=== PATIENT | female | born 1980 | race Caucasian/White ===

== ENCOUNTER 2018-09-30 19:40 | Emergency (ER) | payer BC ==
[2018-09-30] MEDS ORDERED: Ondansetron 4 MG/2 ML SDV IVPUSH ONE (20:03)
[2018-09-30] MEDS ORDERED: Sodium Chloride 0.9% 10 ML Syringe FLUSH PRN (20:03)
[2018-09-30] MEDS ORDERED: HYDROmorphone 1 MG/ML Syringe IVPUSH ONE ×2 (20:05→21:24)
[2018-09-30] MEDS ORDERED: Sodium Chloride 0.9% 1,000 ML IV SCH (20:15)
--- NOTE | 2018-09-30 20:29 | EDM.PDOC ---
ED HPI GENERAL MEDICAL PROBLEM - General Chief Complaint: Abdominal Pain Stated Complaint: RIGHT SIDE LOWER STOMACH AND BACK PAIN Time Seen by Provider: 09/30/18 19:57 Source of Information: Reports: Patient History Limitations: Reports: No Limitations - History of Present Illness INITIAL COMMENTS - FREE TEXT/NARRATIVE: The patient presents with RLQ abdominal pain and right flank pain. She says the pain just started. She just got home and she was bringing groceries into her house. She says the pain is severe and it come and goes. She has no fever , chills, cough, congestion, runny nose, chest pain or shortness of breath. She denies dysuria or hematuria. She has no history of kidney stones. She still has her gallbladder and appendix. She does not think she is . Onset: Sudden Duration: Minutes: Location: Reports: Abdomen, Back Quality: Reports: Sharp Severity: Severe Improves with: Reports: None Worsens with: Reports: None Associated Symptoms: Reports: No Other Symptoms Treatments ION EXCHANGE OPERATOR: Reports: Other (see below) Other Treatments ION EXCHANGE OPERATOR: none Right Abdomen Pain Score (Numeric/FACES): 10 - Related Data Allergies Allergy/AdvReac Type Severity Reaction Status Date / Time No Known Allergies Allergy Verified 09/30/18 19:49 Home Meds: Home Meds ALPRAZolam [Xanax] 0.5 mg PO TID PRN 09/30/18 [History] [place] Citrate [[place]] 150 mg PO DAILY 09/30/18 [History] Lurasidone HCl [Latuda] 120 mg PO BEDTIME 09/30/18 [History] Mirabegron [Myrbetriq] 25 mg PO DAILY 09/30/18 [History] Nitrofurantoin Monohyd/M-Cryst [Macrobid 100 mg Capsule] 100 mg PO BID #10 capsule 09/30/18 [Rx] traMADol [Ultram] 50 - 100 mg PO Q6H PRN #10 tab 09/30/18 [Rx] Past Medical History Neurological History: Reports: Other (See Below) Other Neuro History: micro vascular decompression surgery Psychiatric History: Reports: Anxiety, Depression Social & Family History - Tobacco Use Smoking Status *Q: Never Smoker - Caffeine Use Caffeine Use: Reports: Soda - Recreational Drug Use Recreational Drug Use: No ED ROS GENERAL - Review of Systems Review Of Systems: See Below Constitutional: Reports: No Symptoms HEENT: Reports: No Symptoms Respiratory: Reports: No Symptoms Cardiovascular: Reports: No Symptoms Endocrine: Reports: No Symptoms GI/Abdominal: Reports: Abdominal Pain. Denies: Diarrhea, Nausea, Vomiting : Reports: Flank Pain. Denies: Dysuria, Frequency, Hematuria Musculoskeletal: Reports: Back Pain (right flank) Skin: Reports: No Symptoms ED EXAM, GI/ABD - Physical Exam Exam: See Below Exam Limited By: No Limitations General Appearance: Alert, No Apparent Distress Ears: Normal External Exam Nose: Normal Inspection Head: Atraumatic, Normocephalic Neck: Normal Inspection Respiratory/Chest: No Respiratory Distress, Lungs Clear, Normal Breath Sounds Cardiovascular: Regular Rate, Rhythm, No Edema, No Murmur GI/Abdominal Exam: Soft, No Organomegaly, No Mass, Tender (Mild tenderness to the right lower abdomen) Back Exam: CVA Tenderness (R) Extremities: Normal Inspection Course - Vital Signs Last Recorded V/S: Last Vital Signs Temp 97.9 F 09/30/18 19:56 Pulse 72 09/30/18 19:56 Resp 20 09/30/18 19:56 BP 128/82 09/30/18 19:56 Pulse Ox 100 09/30/18 19:56 - Orders/Labs/Meds Orders: Active Orders 24 hr Category Date Time Status Peripheral IV Care [RC] . DIRECTED Care 09/30/18 20:04 Active Abdomen Pelvis wo Cont [CT] Stat Exams 09/30/18 20:03 Taken Sodium Chloride 0.9% [Normal Saline] 1,000 ml Med 09/30/18 20:15 Active IV ASDIRECTED Sodium Chloride 0.9% [Saline Flush] Med 09/30/18 20:03 Active 10 ml FLUSH ASDIRECTED PRN ED Antiemetic Medication Reflex [OM.PC] Stat Oth 09/30/18 20:03 Ordered Peripheral IV Insertion Adult [OM.PC] Stat Oth 09/30/18 20:03 Ordered Medication Orders Sodium Chloride (Normal Saline) 1,000 mls @ 125 mls/hr IV ASDIRECTED ABDIRIZAK Last Admin: 09/30/18 20:15 Dose: 125 mls/hr Sodium Chloride (Saline Flush) 10 ml FLUSH ASDIRECTED PRN PRN Reason: Keep Vein Open Last Admin: 09/30/18 20:17 Dose: 10 ml Labs: Laboratory Tests 09/30/18 09/30/18 09/30/18 Range/Units 20:23 20:23 20:23 WBC 6.34 (3.98-10.04) K/mm3 RBC 4.16 (3.98-5.22) M/mm3 Hgb 14.0 (11.2-15.7) gm/L Hct 40.1 (34.1-44.9) % MCV 96.4 H (79.4-94.8) fl MCH 33.7 H (25.6-32.2) pg MCHC 34.9 (32.2-35.5) g/dl RDW Std Deviation 42.8 (36.4-46.3) fL Plt Count 238 (182-369) K/mm3 MPV 10.0 (9.4-12.3) fl Neut % (Auto) 57.2 (34.0-71.1) % Lymph % (Auto) 27.6 (19.3-51.7) % [place] % (Auto) 7.7 (4.7-12.5) % Eos % (Auto) 6.2 H (0.7-5.8) Baso % (Auto) 1.1 (0.1-1.2) % Neut # (Auto) 3.63 (1.56-6.13) K/mm3 Lymph # (Auto) 1.75 (1.18-3.74) K/mm3 [place] # (Auto) 0.49 H (0.24-0.36) K/mm3 Eos # (Auto) 0.39 H (0.04-0.36) K/mm3 Baso # (Auto) 0.07 (0.01-0.08) K/mm3 Sodium 142 (136-145) mEq/L Potassium 3.5 (3.5-5.1) mEq/L Chloride 103 (98-107) mEq/L Carbon Dioxide 29 (21-32) mEq/L Anion Gap 13.5 (5-15) BUN 4 L (7-18) mg/dL Creatinine 1.2 H (0.55-1.02) mg/dL Est Cr Clr Drug Dosing 52.58 mL/min Estimated GFR (MDRD) 50 (>60) mL/min BUN/Creatinine Ratio 3.3 L (14-18) Glucose 90 (74-106) mg/dL Calcium 9.2 (8.5-10.1) mg/dL Total Bilirubin 0.5 (0.2-1.0) mg/dL AST 34 (15-37) U/L ALT 72 H (14-59) U/L Alkaline Phosphatase 71 (46-116) U/L Total Protein 8.0 (6.4-8.2) g/dl Albumin 4.3 (3.4-5.0) g/dl Globulin 3.7 gm/dL Albumin/Globulin Ratio 1.2 (1-2) Lipase 215 (73-393) U/L HCG, Qual (NEGATIVE) Urine Color Light yellow (Yellow) Urine Appearance Clear (Clear) Urine pH 6.0 (5.0-8.0) Ur Specific [place] 1.010 (1.005-1.030) Urine Protein Negative (Negative) Urine Glucose (UA) Negative (Negative) Urine Ketones Negative (Negative) Urine Occult Blood Negative (Negative) Urine Nitrite Negative (Negative) Urine Bilirubin Negative (Negative) Urine Urobilinogen 0.2 (0.2-1.0) Ur Leukocyte Esterase 2+ H (Negative) Urine RBC 0-5 (0-5) /hpf Urine WBC 10-20 H (0-5) /hpf Ur Epithelial Cells 0-5 (0-5) /hpf Urine Bacteria Rare (FEW) /hpf Urine Mucus Not seen (FEW) /hpf 09/30/18 Range/Units 20:23 WBC (3.98-10.04) K/mm3 RBC (3.98-5.22) M/mm3 Hgb (11.2-15.7) gm/L Hct (34.1-44.9) % MCV (79.4-94.8) fl MCH (25.6-32.2) pg MCHC (32.2-35.5) g/dl RDW Std Deviation (36.4-46.3) fL Plt Count (182-369) K/mm3 MPV (9.4-12.3) fl Neut % (Auto) (34.0-71.1) % Lymph % (Auto) (19.3-51.7) % [place] % (Auto) (4.7-12.5) % Eos % (Auto) (0.7-5.8) Baso % (Auto) (0.1-1.2) % Neut # (Auto) (1.56-6.13) K/mm3 Lymph # (Auto) (1.18-3.74) K/mm3 [place] # (Auto) (0.24-0.36) K/mm3 Eos # (Auto) (0.04-0.36) K/mm3 Baso # (Auto) (0.01-0.08) K/mm3 Sodium (136-145) mEq/L Potassium (3.5-5.1) mEq/L Chloride (98-107) mEq/L Carbon Dioxide (21-32) mEq/L Anion Gap (5-15) BUN (7-18) mg/dL Creatinine (0.55-1.02) mg/dL Est Cr Clr Drug Dosing mL/min Estimated GFR (MDRD) (>60) mL/min BUN/Creatinine Ratio (14-18) Glucose (74-106) mg/dL Calcium (8.5-10.1) mg/dL Total Bilirubin (0.2-1.0) mg/dL AST (15-37) U/L ALT (14-59) U/L Alkaline Phosphatase (46-116) U/L Total Protein (6.4-8.2) g/dl Albumin (3.4-5.0) g/dl Globulin gm/dL Albumin/Globulin Ratio (1-2) Lipase (73-393) U/L HCG, Qual Negative (NEGATIVE) Urine Color (Yellow) Urine Appearance (Clear) Urine pH (5.0-8.0) Ur Specific [place] (1.005-1.030) Urine Protein (Negative) Urine Glucose (UA) (Negative) Urine Ketones (Negative) Urine Occult Blood (Negative) Urine Nitrite (Negative) Urine Bilirubin (Negative) Urine Urobilinogen (0.2-1.0) Ur Leukocyte Esterase (Negative) Urine RBC (0-5) /hpf Urine WBC (0-5) /hpf Ur Epithelial Cells (0-5) /hpf Urine Bacteria (FEW) /hpf Urine Mucus (FEW) /hpf Meds: Medications Generic Name Dose Route Start Last Admin Trade Name Freq PRN Reason Stop Dose Admin Sodium Chloride 1,000 mls @ 125 mls/hr 09/30/18 20:15 09/30/18 20:15 Normal Saline IV 125 mls/hr ASDIRECTED ABDIRIZAK Administration Sodium Chloride 10 ml 09/30/18 20:03 09/30/18 20:17 Saline Flush FLUSH 10 ml ASDIRECTED PRN Administration Keep Vein Open Discontinued Medications Generic Name Dose Route Start Last Admin Trade Name Cipriano PRN Reason Stop Dose Admin Hydromorphone HCl 0.5 mg 09/30/18 20:05 09/30/18 20:18 Dilaudid IVPUSH 09/30/18 20:06 0.5 mg ONETIME ONE Administration Hydromorphone HCl 0.5 mg 09/30/18 21:24 Dilaudid IVPUSH 09/30/18 21:25 ONETIME ONE Ondansetron HCl 4 mg 09/30/18 20:03 09/30/18 20:16 Zofran IVPUSH 09/30/18 20:04 4 mg ONETIME ONE Administration - Re-Assessments/Exams Free Text/Narrative Re-Assessment/Exam: 09/30/18 20:28 I ordered an IV NS at 125ml/hr, zofran 4mg IV, dilaudid 0.5mg IV, labs, UA and a CT of her abdomen and pelvis without contrast to look for a kidney stone. 09/30/18 21:18 Her CBC looks good. Her creatinine is slightly elevated at 1.2. Her ALT is elevated at 72. Her lipase is negative. Her HCG is negative. He US shows a UTI. I am waiting for the CT. 09/30/18 21:[address] shows nothing acute. She has more pain so I ordered some dilaudid. I will get her on some macrobid for the UTI. Departure - Departure Time of Disposition: 21:30 Disposition: Home, Self-Care 01 Condition: Good Clinical Impression: Abdominal pain Qualifiers: Abdominal location: right lower quadrant Qualified Code(s): R10.31 - Right lower quadrant pain UTI (urinary tract infection) Qualifiers: Urinary tract infection type: site unspecified Hematuria presence: without hematuria Qualified Code(s): N39.0 - Urinary tract infection, site not specified - Discharge Information *PRESCRIPTION DRUG MONITORING PROGRAM REVIEWED*: No *COPY OF PRESCRIPTION DRUG MONITORING REPORT IN PATIENT CHUCK: No Prescriptions: Nitrofurantoin Monohyd/M-Cryst [Macrobid 100 mg Capsule] 100 mg PO BID #10 capsule traMADol [Ultram] 50 - 100 mg PO Q6H PRN #10 tab PRN Reason: Pain Referrals: PCP,None [Primary Care Provider] - Jorge Burns, JONELLE [Physician Mold Maintenance Technician] - 1 Week Forms: ED Department Discharge Additional Instructions: Take the macrobid 2 times per day for 5 days. Drink plenty of fluids. Take tylenol or motrin for pain. If that does not help, you can try some ultram. Please return if you are worse. - My Orders Last 24 Hours: My Active Orders 09/30/18 20:03 Abdomen Pelvis wo Cont [CT] Stat Sodium Chloride 0.9% [Saline Flush] 10 ml FLUSH ASDIRECTED PRN ED Antiemetic Medication Reflex [OM.PC] Stat Peripheral IV Insertion Adult [OM.PC] Stat 09/30/18 20:04 Peripheral IV Care [RC] . DIRECTED 09/30/18 20:15 Sodium Chloride 0.9% [Normal Saline] 1,000 ml IV ASDIRECTED - Assessment/Plan Last 24 Hours: My Active Orders 09/30/18 20:03 Abdomen Pelvis wo Cont [CT] Stat Sodium Chloride 0.9% [Saline Flush] 10 ml FLUSH ASDIRECTED PRN ED Antiemetic Medication Reflex [OM.PC] Stat Peripheral IV Insertion Adult [OM.PC] Stat 09/30/18 20:04 Peripheral IV Care [RC] . DIRECTED 09/30/18 20:15 Sodium Chloride 0.9% [Normal Saline] 1,000 ml IV ASDIRECTED
--- NOTE | 2018-10-01 07:19 | CT ---
CT abdomen and pelvis Technique: Multiple axial sections were obtained from above the dome of the diaphragm inferiorly through the pubic symphysis. Intravenous contrast and oral contrast not given. Study has been performed as a ureteral stone protocol. Findings: Kidneys show no abnormal calcifications. No ureteral dilatation is seen. No ureteral calculi are seen. Small portion of the visualized lung bases are clear. Liver shows no focal parenchymal abnormality. Spleen appears within normal limits. Adrenal glands show no nodule. Pancreas is within normal limits. Gallbladder contains no calcified gallstones. Aorta shows no aneurysm. No retroperitoneal adenopathy or mesenteric abnormalities are seen. No pelvic mass or adenopathy is seen. No free fluid or inflammatory change is seen. No bowel dilatation is seen. Appendix is seen which is normal in size. Bone window settings were reviewed which appear within normal limits for the patient's age. Impression: 1. No renal calculi, ureteral dilatation or ureteral stone is seen. 2. Nothing acute is seen on noncontrast CT study of the abdomen and pelvis performed as a ureteral stone protocol. Diagnostic code #1 I agree with preliminary report from [facility], finalized on 09/30/18, 10:19 PM Central Time
== END 2018-09-30 21:38 | disposition home or self-care (01) ==
LOC: JD.ED 19:40
DX: N39.0 Urinary tract infection, site not specified (principal); F41.9 Anxiety disorder, unspecified; F32.9 Major depressive disorder, single episode, unspecified; Z79.899 Other long term (current) drug therapy
CPT/HCPCS: 36415; 74176; 80053; 81001; 83690; 84703; 85025; 96361; 96374; 96375; 96376; 99284; J1170; J2405; J7040

== ENCOUNTER 2018-11-15 18:50 | Emergency (ER) | payer BC ==
[2018-11-15] MEDS ORDERED: Sulfamethoxazole/Trimethoprim 800-160 MG Tab PO ONE (22:45)
[2018-11-15] MEDS ORDERED: traMADol 50 MG Tab PO ONE (22:55)
--- NOTE | 2018-11-15 22:58 | EDM.PDOC ---
ED HPI GENERAL MEDICAL PROBLEM - General Chief Complaint: General Stated Complaint: RIGHT SIDE PAIN WHEN WALKING HURTS TO BREATHE Time Seen by Provider: 11/15/18 19:11 - History of Present Illness Treatments PRODUCER DIRECTOR: Reports: Other (see below) Other Treatments PRODUCER DIRECTOR: motrin - Related Data Allergies Allergy/AdvReac Type Severity Reaction Status Date / Time No Known Allergies Allergy Verified 09/30/18 19:49 Home Meds: Home Meds ALPRAZolam [Xanax] 0.5 mg PO TID PRN 09/30/18 [History] [place] Citrate [[place]] 450 mg PO DAILY 09/30/18 [History] Lurasidone HCl [Latuda] 120 mg PO BEDTIME 09/30/18 [History] Mirabegron [Myrbetriq] 25 mg PO DAILY 09/30/18 [History] traMADol [Ultram] 50 - 100 mg PO Q6H PRN #10 tab 09/30/18 [Rx] Past Medical History Neurological History: Reports: Other (See Below) Other Neuro History: micro vascular decompression surgery Psychiatric History: Reports: Anxiety, Depression, Psychosis Social & Family History - Tobacco Use Smoking Status *Q: Never Smoker - Caffeine Use Caffeine Use: Reports: Soda - Recreational Drug Use Recreational Drug Use: No ED ROS GENERAL - Review of Systems Review Of Systems: ROS reveals no pertinent complaints other than HPI. ED EXAM, GENERAL - Physical Exam Exam: See Below Free Text/Narrative:: dictated Course - Vital Signs Last Recorded V/S: Last Vital Signs Temp 37.2 C 11/15/18 19:08 Pulse 92 11/15/18 19:08 Resp 20 11/15/18 19:08 BP 130/87 11/15/18 19:08 Pulse Ox 98 11/15/18 19:08 - Orders/Labs/Meds Orders: Active Orders 24 hr Category Date Time Status CXR [Chest 2V] [CR] Stat Exams 11/15/18 19:22 Taken Labs: Laboratory Tests 11/15/18 11/15/18 11/15/18 Range/Units 19:30 19:30 19:30 WBC 7.16 (3.98-10.04) K/mm3 RBC 3.97 L (3.98-5.22) M/mm3 Hgb 13.5 (11.2-15.7) gm/L Hct 38.4 (34.1-44.9) % MCV 96.7 H (79.4-94.8) fl MCH 34.0 H (25.6-32.2) pg MCHC 35.2 (32.2-35.5) g/dl RDW Std Deviation 42.9 (36.4-46.3) fL Plt Count 253 (182-369) K/mm3 MPV 9.7 (9.4-12.3) fl Neut % (Auto) 67.1 (34.0-71.1) % Lymph % (Auto) 19.3 (19.3-51.7) % [place] % (Auto) 7.8 (4.7-12.5) % Eos % (Auto) 4.7 (0.7-5.8) Baso % (Auto) 1.1 (0.1-1.2) % Neut # (Auto) 4.80 (1.56-6.13) K/mm3 Lymph # (Auto) 1.38 (1.18-3.74) K/mm3 [place] # (Auto) 0.56 H (0.24-0.36) K/mm3 Eos # (Auto) 0.34 (0.04-0.36) K/mm3 Baso # (Auto) 0.08 (0.01-0.08) K/mm3 Manual Slide Review Normal smear D-Dimer, Quantitative 0.21 (0.19-0.50) mg/L Sodium 141 (136-145) mEq/L Potassium 3.6 (3.5-5.1) mEq/L Chloride 102 (98-107) mEq/L Carbon Dioxide 29 (21-32) mEq/L Anion Gap 13.6 (5-15) BUN 4 L (7-18) mg/dL Creatinine 1.0 (0.55-1.02) mg/dL Est Cr Clr Drug Dosing 62.48 mL/min Estimated GFR (MDRD) > 60 (>60) mL/min BUN/Creatinine Ratio 4.0 L (14-18) Glucose 95 (74-106) mg/dL Calcium 9.4 (8.5-10.1) mg/dL Total Bilirubin 0.4 (0.2-1.0) mg/dL AST 41 H (15-37) U/L ALT 64 H (14-59) U/L Alkaline Phosphatase 68 (46-116) U/L Total Protein 7.6 (6.4-8.2) g/dl Albumin 4.0 (3.4-5.0) g/dl Globulin 3.6 gm/dL Albumin/Globulin Ratio 1.1 (1-2) Urine Color (Yellow) Urine Appearance (Clear) Urine pH (5.0-8.0) Ur Specific [place] (1.005-1.030) Urine Protein (Negative) Urine Glucose (UA) (Negative) Urine Ketones (Negative) Urine Occult Blood (Negative) Urine Nitrite (Negative) Urine Bilirubin (Negative) Urine Urobilinogen (0.2-1.0) Ur Leukocyte Esterase (Negative) Urine RBC (0-5) /hpf Urine WBC (0-5) /hpf Urine WBC Clumps (NOT SEEN) /hpf Ur Epithelial Cells Ur Squamous Epith Cells (0-5) /hpf Ur Renal Epithelial Cell (0-5) /hpf Urine Bacteria (FEW) /hpf Urine Mucus (FEW) /hpf 11/15/18 Range/Units 21:54 WBC (3.98-10.04) K/mm3 RBC (3.98-5.22) M/mm3 Hgb (11.2-15.7) gm/L Hct (34.1-44.9) % MCV (79.4-94.8) fl MCH (25.6-32.2) pg MCHC (32.2-35.5) g/dl RDW Std Deviation (36.4-46.3) fL Plt Count (182-369) K/mm3 MPV (9.4-12.3) fl Neut % (Auto) (34.0-71.1) % Lymph % (Auto) (19.3-51.7) % [place] % (Auto) (4.7-12.5) % Eos % (Auto) (0.7-5.8) Baso % (Auto) (0.1-1.2) % Neut # (Auto) (1.56-6.13) K/mm3 Lymph # (Auto) (1.18-3.74) K/mm3 [place] # (Auto) (0.24-0.36) K/mm3 Eos # (Auto) (0.04-0.36) K/mm3 Baso # (Auto) (0.01-0.08) K/mm3 Manual Slide Review D-Dimer, Quantitative (0.19-0.50) mg/L Sodium (136-145) mEq/L Potassium (3.5-5.1) mEq/L Chloride (98-107) mEq/L Carbon Dioxide (21-32) mEq/L Anion Gap (5-15) BUN (7-18) mg/dL Creatinine (0.55-1.02) mg/dL Est Cr Clr Drug Dosing mL/min Estimated GFR (MDRD) (>60) mL/min BUN/Creatinine Ratio (14-18) Glucose (74-106) mg/dL Calcium (8.5-10.1) mg/dL Total Bilirubin (0.2-1.0) mg/dL AST (15-37) U/L ALT (14-59) U/L Alkaline Phosphatase (46-116) U/L Total Protein (6.4-8.2) g/dl Albumin (3.4-5.0) g/dl Globulin gm/dL Albumin/Globulin Ratio (1-2) Urine Color Yellow (Yellow) Urine Appearance Slt cloudy H (Clear) Urine pH 7.0 (5.0-8.0) Ur Specific [place] 1.020 (1.005-1.030) Urine Protein Negative (Negative) Urine Glucose (UA) Negative (Negative) Urine Ketones Negative (Negative) Urine Occult Blood 2+ H (Negative) Urine Nitrite Negative (Negative) Urine Bilirubin Negative (Negative) Urine Urobilinogen 0.2 (0.2-1.0) Ur Leukocyte Esterase 3+ H (Negative) Urine RBC 5-10 H (0-5) /hpf Urine WBC 10-20 H (0-5) /hpf Urine WBC Clumps Few (NOT SEEN) /hpf Ur Epithelial Cells Not Reportable Ur Squamous Epith Cells 0-5 (0-5) /hpf Ur Renal Epithelial Cell 0-5 (0-5) /hpf Urine Bacteria Moderate H (FEW) /hpf Urine Mucus Few (FEW) /hpf Meds: Medications Discontinued Medications Generic Name Dose Route Start Last Admin Trade Name Freq PRN Reason Stop Dose Admin Tramadol HCl 100 mg 11/15/18 22:55 Ultram PO 11/15/18 22:56 ONETIME ONE Trimethoprim/Sulfamethoxazole 1 tab 11/15/18 22:45 11/15/18 22:55 Septra Ds PO 11/15/18 22:46 1 tab ONETIME ONE Administration Departure - Departure Time of Disposition: 22:57 Disposition: Home, Self-Care 01 Condition: Fair Clinical Impression: UTI, Urinary tract infectious disease - Discharge Information Instructions: Urinary Tract Infection, Adult Referrals: Jorge Burns, JONELLE [Primary Care Provider] - - My Orders Last 24 Hours: My Active Orders 11/15/18 19:22 CXR [Chest 2V] [CR] Stat - Assessment/Plan Last 24 Hours: My Active Orders 11/15/18 19:22 CXR [Chest 2V] [CR] Stat
--- NOTE | 2018-11-16 02:51 | ER ---
REASON FOR EMERGENCY ROOM VISIT: Right mid back and flank pain. HISTORY OF PRESENT ILLNESS: This 38-year-old woman has had a history of UTIs. She has been treated in the recent past for urinary tract infection with nitrofurantoin. This morning, she began to experience some heaviness in her mid back area and right flank area. It seemed to radiate down toward her right groin area. It was increased with deep breathing and any exertion including walking seemed to aggravate her symptoms. She has not had any dysuria or blood in her urine. She has not had any respiratory symptoms such as shortness of breath. She denies any fever or chills. She has never had any pyelonephritis or kidney stones. PAST MEDICAL HISTORY: Significant for depression. CURRENT MEDICATIONS: Include Latuda for depression, Xanax, clonidine, Myrbetriq, and lithium. FAMILY HISTORY: Father has had an AL. Her mother had hypertension and elevated cholesterol. Her brother also has hypertension. ALLERGIES: None to medications. REVIEW OF SYSTEMS: Pertinent positives and negatives as in HPI. PHYSICAL EXAMINATION: GENERAL: She is a pleasant woman, in no acute distress. She is afebrile. VITAL SIGNS: Pulse of 92, blood pressure 130/97, respirations 20, and O2 sats 98%. HEENT: She has cushingoid facies. NECK: Supple. No adenopathy. CHEST: Nontender to palpation and percussion. Clear to auscultation with no wheezes, rhonchi, or rales. Good air exchange is noted bilaterally. CARDIAC: Regular rate, without murmur. ABDOMEN: Soft and nontender to palpation. There is no CVA tenderness. No pelvic tenderness is noted. EXTREMITIES: Normal pulses. No edema. LABORATORY DATA: Her WBC is normal at 7.1 x10 to the 3rd. Her hemoglobin is 13.5. D-dimer was normal at 0.21. A CMP was obtained. Her electrolytes are normal, and she has minimal elevation of her AST and ALT, but no elevation of bilirubin or alkaline phosphatase. Urinalysis demonstrated that she had 2+ occult blood, 3+ leukocyte esterase, 5 to 10 rbc's, and 10 to 20 wbc's per high-powered field. She has moderate bacteria. IMPRESSION: Urinary tract infection. Clinically, she does not appear to have pyelonephritis, but it is possible this may be very early. That could theoretically account for her symptoms. PLAN: Bactrim DS 1 p.o. q.12 hours x5 days. She was given her first dose today. Because of her discomfort, she was given 1 tablet of tramadol 100 mg to take when she gets home tonight. She has 2 or 3 of these at home, and if she needs them, she can go ahead and use them. If her symptoms do not improve or worsen within the next day or two, she should probably be seen and re-evaluated. All questions were answered. She understands and agrees with this plan. ERAN /[id number]
--- NOTE | 2018-11-16 06:29 | CR ---
Chest: Two views of the chest were obtained. Comparison: No prior chest x-ray. Heart size and mediastinum are normal. Lungs are clear. Bony structures are unremarkable. Impression: 1. Nothing acute is seen on two-view chest x-ray. Diagnostic code #1
== END 2018-11-15 23:10 | disposition home or self-care (01) ==
LOC: JD.ED 18:50
DX: N39.0 Urinary tract infection, site not specified (principal); F41.9 Anxiety disorder, unspecified; F32.9 Major depressive disorder, single episode, unspecified; Z79.899 Other long term (current) drug therapy
CPT/HCPCS: 36415; 71046; 80053; 81001; 85025; 85379; 99284; A9270; 99283

== ENCOUNTER 2018-12-01 12:20 | Emergency (ER) | payer BC ==
--- NOTE | 2018-12-01 14:29 | EDM.PDOC ---
ED HPI GENERAL MEDICAL PROBLEM - General Chief Complaint: Drug or Alcohol Abuse Stated Complaint: CONFUSED THINKS SHE MAY HAVE TOOK TO MANY MEDS Time Seen by Provider: 12/01/18 13:01 Source of Information: Reports: Patient History Limitations: Reports: No Limitations, Altered Mental Status - History of Present Illness INITIAL COMMENTS - FREE TEXT/NARRATIVE: 38 y/o female presents to ER with cc new onset confusion. She reports taking Amenia for her manic depressive disorder. She had her dose increased to 300 mg TID last week. Yesterday she took a dose in the morning and 600 mg last night. Today she woke up confused and had "inappropriate " behavior, like saying random things and being forgetful. She is accompanied by her spouse. She denies any fever, chills, tremors, shakes, thirst, polydipsia, nausea, vomiting, general discomfort, dizziness, rash, git disturbance, decreased appetite, blurred vision, lethargic or seizures. She is behaving appropriately and is able to answer questions with some hesitation. She does follow simple commands, no tremors noted. Onset: Today Onset Date: 12/01/18 Onset Time: 08:00 Severity: Mild Improves with: Reports: None Worsens with: Reports: None Associated Symptoms: Reports: Confusion. 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: Neurological History: Reports: Other (See Below) Other Neuro History: micro vascular decompression surgery Psychiatric History: Reports: Anxiety, Depression, Psychosis Social & Family History - Tobacco Use Smoking Status *Q: Never Smoker - Caffeine Use Caffeine Use: Reports: Soda - Recreational Drug Use Recreational Drug Use: No ED ROS GENERAL - Review of Systems Review Of Systems: See Below Constitutional: Denies: Fever, Chills HEENT: Reports: No Symptoms Respiratory: Denies: Shortness of Breath Cardiovascular: Denies: Chest Pain Endocrine: Denies: Fatigue GI/Abdominal: Denies: Abdominal Pain, Constipation, Diarrhea : Reports: Incontinence Musculoskeletal: Reports: No Symptoms Skin: Reports: No Symptoms Neurological: Reports: Confusion. Denies: Dizziness, Headache, Seizure, Syncope , Difficulty Walking, Weakness, Change in Speech, Gait Disturbance Psychiatric: Reports: Other (history of manic depressive disorder) Hematologic/Lymphatic: Reports: No Symptoms Immunologic: Reports: No Symptoms - Physical Exam Exam: See Below Exam Limited By: No Limitations General Appearance: Alert, WD/WN, No Apparent Distress, Other (periods of confusion, delayed response) Eye Exam: Bilateral Eye: EOMI, PERRL Ears: Normal External Exam, Normal Canal, Hearing Grossly Normal, Normal TMs Nose: Normal Inspection, Normal Mucosa, No Blood Throat/Mouth: Normal Inspection, Normal Lips, Normal Teeth, Normal Gums, Normal Oropharynx, Normal Voice, No Airway Compromise Head Exam: Atraumatic, Normocephalic Neck: Normal Inspection, Supple, Non-Tender, Full Range of Motion Respiratory/Chest: No Respiratory Distress, Lungs Clear, Normal Breath Sounds, No Accessory Muscle Use, Chest Non-Tender Cardiovascular: Normal Peripheral Pulses, Regular Rate, Rhythm, No Edema, No Gallop, No JVD, No Murmur, No Rub GI/Abdominal: Normal Bowel Sounds, Soft, Non-Tender, No Organomegaly, No Distention, No Abnormal Bruit, No Mass, Pelvis Stable Neuro Exam (Abbreviated): Alert, Oriented, CN II-XII Intact, Normal Cognition, Normal Gait, No Motor/Sensory Deficits, Other (periods of confusion) Back Exam: Normal Inspection, Full Range of Motion Extremities: Normal Inspection, Normal Range of Motion, Non-Tender, No Pedal Edema, Normal Capillary Refill Psychiatric: Normal Affect, Normal Mood Skin Exam: Warm, Dry, Intact, Normal Color, No Rash Course - Vital Signs Last Recorded V/S: Last Vital Signs Temp 98.4 F 12/01/18 13:00 Pulse 95 12/01/18 13:00 Resp 12 12/01/18 13:00 BP 123/73 12/01/18 13:00 Pulse Ox 100 12/01/18 13:00 - Orders/Labs/Meds Orders: Active Orders 24 hr Category Date Time Status LITHIUM [REF] Stat Lab 12/01/18 14:33 Received Sodium Chloride 0.9% [Normal Saline] 1,000 ml Med 12/01/18 14:15 Active IV ASDIRECTED Medication Orders Sodium Chloride (Normal Saline) 1,000 mls @ 999 mls/hr IV ASDIRECTED ABDIRIZAK Last Admin: 12/01/18 14:31 Dose: 999 mls/hr Labs: Laboratory Tests 12/01/18 12/01/18 12/01/18 Range/Units 14:00 14:33 14:33 WBC 5.24 (3.98-10.04) K/mm3 RBC 4.19 (3.98-5.22) M/mm3 Hgb 14.2 (11.2-15.7) gm/L Hct 40.8 (34.1-44.9) % MCV 97.4 H (79.4-94.8) fl MCH 33.9 H (25.6-32.2) pg MCHC 34.8 (32.2-35.5) g/dl RDW Std Deviation 44.6 (36.4-46.3) fL Plt Count 267 (182-369) K/mm3 MPV 9.4 (9.4-12.3) fl Neut % (Auto) 66.0 (34.0-71.1) % Lymph % (Auto) 21.6 (19.3-51.7) % [place] % (Auto) 7.1 (4.7-12.5) % Eos % (Auto) 3.8 (0.7-5.8) Baso % (Auto) 1.3 H (0.1-1.2) % Neut # (Auto) 3.46 (1.56-6.13) K/mm3 Lymph # (Auto) 1.13 L (1.18-3.74) K/mm3 [place] # (Auto) 0.37 H (0.24-0.36) K/mm3 Eos # (Auto) 0.20 (0.04-0.36) K/mm3 Baso # (Auto) 0.07 (0.01-0.08) K/mm3 Sodium 141 (136-145) mEq/L Potassium 3.6 (3.5-5.1) mEq/L Chloride 102 (98-107) mEq/L Carbon Dioxide 29 (21-32) mEq/L Anion Gap 13.6 (5-15) BUN 3 L (7-18) mg/dL Creatinine 1.1 H (0.55-1.02) mg/dL Est Cr Clr Drug Dosing 56.80 mL/min Estimated GFR (MDRD) 55 (>60) mL/min BUN/Creatinine Ratio 2.7 L (14-18) Glucose 105 (74-106) mg/dL Calcium 9.8 (8.5-10.1) mg/dL Total Bilirubin 0.6 (0.2-1.0) mg/dL AST 69 H (15-37) U/L ALT 99 H (14-59) U/L Alkaline Phosphatase 72 (46-116) U/L Total Protein 8.3 H (6.4-8.2) g/dl Albumin 4.5 (3.4-5.0) g/dl Globulin 3.8 gm/dL Albumin/Globulin Ratio 1.2 (1-2) Urine Color Yellow (Yellow) Urine Appearance Clear (Clear) Urine pH 6.5 (5.0-8.0) Ur Specific [place] 1.010 (1.005-1.030) Urine Protein Negative (Negative) Urine Glucose (UA) Negative (Negative) Urine Ketones Negative (Negative) Urine Occult Blood 2+ H (Negative) Urine Nitrite Negative (Negative) Urine Bilirubin Negative (Negative) Urine Urobilinogen 0.2 (0.2-1.0) Ur Leukocyte Esterase Negative (Negative) Urine Opiates Screen (HKVLAY=542) Ur Buprenorphine Scrn (CUTOFF=10) Ur Oxycodone Screen (PDA0WM=073) Urine Methadone Screen (AUUCMC=912) Ur Propoxyphene Screen (SLMIMQ=622) Ur Barbiturates Screen (KXYPXG=419) Ur Tricyclics Screen (MXLIVL=392) Ur Phencyclidine Scrn (CUTOFF=25) Ur Amphetamine Screen (BTWMCO=420) U Methamphetamines Scrn (DKTCYI=916) U Benzodiazepines Scrn (KDELOL=735) U Cocaine Metab Screen (RRBFXV=245) U Marijuana (THC) Screen (CUTOFF=50) 12/01/18 Range/Units 15:00 WBC (3.98-10.04) K/mm3 RBC (3.98-5.22) M/mm3 Hgb (11.2-15.7) gm/L Hct (34.1-44.9) % MCV (79.4-94.8) fl MCH (25.6-32.2) pg MCHC (32.2-35.5) g/dl RDW Std Deviation (36.4-46.3) fL Plt Count (182-369) K/mm3 MPV (9.4-12.3) fl Neut % (Auto) (34.0-71.1) % Lymph % (Auto) (19.3-51.7) % [place] % (Auto) (4.7-12.5) % Eos % (Auto) (0.7-5.8) Baso % (Auto) (0.1-1.2) % Neut # (Auto) (1.56-6.13) K/mm3 Lymph # (Auto) (1.18-3.74) K/mm3 [place] # (Auto) (0.24-0.36) K/mm3 Eos # (Auto) (0.04-0.36) K/mm3 Baso # (Auto) (0.01-0.08) K/mm3 Sodium (136-145) mEq/L Potassium (3.5-5.1) mEq/L Chloride (98-107) mEq/L Carbon Dioxide (21-32) mEq/L Anion Gap (5-15) BUN (7-18) mg/dL Creatinine (0.55-1.02) mg/dL Est Cr Clr Drug Dosing mL/min Estimated GFR (MDRD) (>60) mL/min BUN/Creatinine Ratio (14-18) Glucose (74-106) mg/dL Calcium (8.5-10.1) mg/dL Total Bilirubin (0.2-1.0) mg/dL AST (15-37) U/L ALT (14-59) U/L Alkaline Phosphatase (46-116) U/L Total Protein (6.4-8.2) g/dl Albumin (3.4-5.0) g/dl Globulin gm/dL Albumin/Globulin Ratio (1-2) Urine Color (Yellow) Urine Appearance (Clear) Urine pH (5.0-8.0) Ur Specific [place] (1.005-1.030) Urine Protein (Negative) Urine Glucose (UA) (Negative) Urine Ketones (Negative) Urine Occult Blood (Negative) Urine Nitrite (Negative) Urine Bilirubin (Negative) Urine Urobilinogen (0.2-1.0) Ur Leukocyte Esterase (Negative) Urine Opiates Screen Negative (FMLCIB=884) Ur Buprenorphine Scrn Negative (CUTOFF=10) Ur Oxycodone Screen Negative (CUW9SE=313) Urine Methadone Screen Negative (TWTCQG=649) Ur Propoxyphene Screen Negative (EGDDKF=151) Ur Barbiturates Screen Negative (RWAFEF=343) Ur Tricyclics Screen Negative (XYBNGA=114) Ur Phencyclidine Scrn Negative (CUTOFF=25) Ur Amphetamine Screen Negative (YHUQVE=172) U Methamphetamines Scrn Negative (PSIUZA=778) U Benzodiazepines Scrn Presumptive positive H (FAXAVW=429) U Cocaine Metab Screen Negative (JNMJRH=613) U Marijuana (THC) Screen Negative (CUTOFF=50) Meds: Medications Generic Name Dose Route Start Last Admin Trade Name Freq PRN Reason Stop Dose Admin Sodium Chloride 1,000 mls @ 999 mls/hr 12/01/18 14:15 12/01/18 14:31 Normal Saline IV 999 mls/hr ASDIRECTED [facility] Administration - Re-Assessments/Exams Free Text/Narrative Re-Assessment/Exam: 12/01/18 1415 Spoke with Megan with poison control regarding possible lithium toxicity. I ordered labs. Unfortunately I will not have lithium level back today. I will evaluate kidney functions. 12/01/18 16:00 38 y/o female presented to ER with cc confusion and concerned she took to much Amenia. Amenia level was ordered but results will not be back for a few days since it is a sent out. She received 1 Lt NS and her condition improved some. WBC 5.24 RBC 4.19 H & H 14.2/40.8 Na+ 141 K+ 3.6 chl 102 co2 29 BUM 3 creatine 1.1 ast 69 alt 99 urinalysis negative UDS + benzo's she is taking alprazolam. I am not sure what has caused her confusion. I recommend she follow up with her PCP for further evaluation. Instructed to return to the ER for any new or acute worsening symptoms. I discussed findings with patient and . He reports she is back to base line and is comfortable with plan for discharge. She is stable and oriented x 3 and appropriate at time of discharge. Departure - Departure Time of Disposition: 16:07 Disposition: Home, Self-Care 01 Condition: Good Clinical Impression: Confusion state - Discharge Information *PRESCRIPTION DRUG MONITORING PROGRAM REVIEWED*: Not Applicable *COPY OF PRESCRIPTION DRUG MONITORING REPORT IN PATIENT CHUCK: Not Applicable Instructions: Confusion Referrals: Jorge Burns PA-C [Primary Care Provider] - Forms: ED Return to Work/School Form Additional Instructions: You were seen for confusion. Your labs were unremarkable. Your Amenia level will be resulted in a few days. If there is a abnormality we will contact your. I recommend you follow up with your PCP. Take your medications as prescribed. Return to the ER for any new or acute worsening symptoms. - My Orders Last 24 Hours: My Active Orders 12/01/18 14:15 Sodium Chloride 0.9% [Normal Saline] 1,000 ml IV ASDIRECTED 12/01/18 14:33 LITHIUM [REF] Stat - Assessment/Plan Last 24 Hours: My Active Orders 12/01/18 14:15 Sodium Chloride 0.9% [Normal Saline] 1,000 ml IV ASDIRECTED 12/01/18 14:33 LITHIUM [REF] Stat
[2018-12-01] MEDS: Sodium Chloride 0.9% 1,000 ML IV SCH (14:31)
== END 2018-12-01 16:25 | disposition home or self-care (01) ==
LOC: JD.ED 12:20
DX: R41.0 Disorientation, unspecified (principal); F41.9 Anxiety disorder, unspecified; F32.9 Major depressive disorder, single episode, unspecified; Z79.899 Other long term (current) drug therapy
CPT/HCPCS: 80053; 80178; 80306; 81003; 85025; 96360; 99284; J7040; 99283

== ENCOUNTER 2019-05-30 07:54 | Emergency (ER) | payer BC ==
--- NOTE | 2019-05-30 08:40 | EDM.PDOC ---
ED HPI GENERAL MEDICAL PROBLEM - General Chief Complaint: General Stated Complaint: WEAK (BOTH KNEES),DIZZY,UNABLE TO HEAR(RIGHT EAR) Time Seen by Provider: 05/30/19 08:40 - History of Present Illness INITIAL COMMENTS - FREE TEXT/NARRATIVE: 38-year-old female presents emergency room with problems of dizziness weakness in her knees and transient hearing loss. Patient awoke around 1:00 this morning and walked down the [place] towards the front door in became weak in her knees and lightheaded all at the same time. She did not have weakness on one side more so than the other she was just generally weak. She went back to to bed and laid down on the right side and had transient hearing loss on the right side this did come back. Patient is currently treated for bipolar disease and is on Latuda. She is also on Myrbetriq and gabapentin. She uses when necessary Xanax. She has had intermittent problems with dizziness this morning no prior history of vertigo or vertigo-like illnesses. She's had a lot of hearing problems and had ear surgery at one point. 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 History: Reports: Other (See Below) Other Neuro History: micro vascular decompression surgery Psychiatric History: Reports: Anxiety, Depression, Psychosis Social & Family History - Caffeine Use Caffeine Use: Reports: Soda ED ROS GENERAL - Review of Systems Review Of Systems: See Below Constitutional: Reports: No Symptoms HEENT: Reports: No Symptoms Respiratory: Reports: No Symptoms Cardiovascular: Reports: No Symptoms Endocrine: Reports: No Symptoms GI/Abdominal: Reports: No Symptoms : Reports: No Symptoms Musculoskeletal: Reports: No Symptoms Neurological: Reports: Dizziness Psychiatric: Reports: Anxiety Hematologic/Lymphatic: Reports: No Symptoms ED EXAM, GENERAL - Physical Exam Exam: See Below Exam Limited By: No Limitations General Appearance: Alert, No Apparent Distress Eye Exam: Bilateral Eye: Normal Inspection, PERRL Ears: Normal External Exam, Normal Canal, Hearing Grossly Normal, Normal TMs Nose: Normal Inspection, Normal Mucosa, No Blood Throat/Mouth: Normal Inspection, Normal Lips, Normal Teeth, Normal Gums, Normal Oropharynx, Normal Voice, No Airway Compromise Head: Atraumatic, Normocephalic Neck: Normal Inspection, Supple, Non-Tender, Full Range of Motion. No: Lymphadenopathy (L), Lymphadenopathy (R) Respiratory/Chest: No Respiratory Distress, Lungs Clear, Normal Breath Sounds Cardiovascular: Regular Rate, Rhythm, No Edema, No Murmur GI/Abdominal: Normal Bowel Sounds, Soft, Non-Tender Back Exam: Normal Inspection. No: CVA Tenderness (L), CVA Tenderness (R) Extremities: Normal Inspection, No Pedal Edema Neurological: Alert, Oriented, CN II-XII Intact, Normal Cognition, No Motor/ Sensory Deficits, Other (Sitting the patient up from a semisitting position causes some dizziness that is short-lived and then resolved looking to the right seems to trigger it at times and at other times looking to the left will trigger it. I attempted to do other provocative testing however this was not tolerated by the patient.) Psychiatric: Normal Affect Skin Exam: Warm, Dry, Intact Lymphatic: No Adenopathy EKG INTERPRETATION EKG Date: 05/30/19 Rhythm: NSR [place]: Normal P-Wave: Present QRS: Other (Decreased voltage most likely due to body habitus narrow Q's noted in lead 3) ST-T: Normal QT: Normal Comparison: NA - No Prior EKG EKG Interpretation Comments: Nonacute borderline EKG Course - Vital Signs Last Recorded V/S: Last Vital Signs Temp 36.3 C 05/30/19 08:03 Pulse 74 05/30/19 08:03 Resp 18 05/30/19 08:03 BP 97/54 L 05/30/19 08:03 Pulse Ox 100 05/30/19 08:03 - Orders/Labs/Meds Orders: Active Orders 24 hr Category Date Time Status Cardiac Monitoring [RC] . DIRECTED Care 05/30/19 08:53 Active EKG Documentation Completion [RC] STAT Care 05/30/19 08:52 Active Chest 2V [CR] Stat Exams 05/30/19 09:15 Taken Labs: Laboratory Tests 05/30/19 05/30/19 05/30/19 Range/Units 08:19 08:19 08:19 WBC 4.89 (3.98-10.04) K/mm3 RBC 3.81 L (3.98-5.22) M/mm3 Hgb 12.0 D (11.2-15.7) gm/dl Hct 36.0 (34.1-44.9) % MCV 94.5 (79.4-94.8) fl MCH 31.5 (25.6-32.2) pg MCHC 33.3 (32.2-35.5) g/dl RDW Std Deviation 42.8 (36.4-46.3) fL Plt Count 257 (182-369) K/mm3 MPV 9.7 (9.4-12.3) fl Neut % (Auto) 49.5 (34.0-71.1) % Lymph % (Auto) 31.3 (19.3-51.7) % [place] % (Auto) 9.8 (4.7-12.5) % Eos % (Auto) 7.6 H (0.7-5.8) Baso % (Auto) 1.4 H (0.1-1.2) % Neut # (Auto) 2.42 (1.56-6.13) K/mm3 Lymph # (Auto) 1.53 (1.18-3.74) K/mm3 [place] # (Auto) 0.48 H (0.24-0.36) K/mm3 Eos # (Auto) 0.37 H (0.04-0.36) K/mm3 Baso # (Auto) 0.07 (0.01-0.08) K/mm3 Sodium 140 (136-145) mEq/L Potassium 3.5 (3.5-5.1) mEq/L Chloride 105 (98-107) mEq/L Carbon Dioxide 30 (21-32) mEq/L Anion Gap 8.5 (5-15) BUN 3 L (7-18) mg/dL Creatinine 1.0 (0.55-1.02) mg/dL Est Cr Clr Drug Dosing 62.48 mL/min Estimated GFR (MDRD) > 60 (>60) mL/min BUN/Creatinine Ratio 3.0 L (14-18) Glucose 80 (74-106) mg/dL Calcium 8.9 (8.5-10.1) mg/dL Total Bilirubin 0.3 (0.2-1.0) mg/dL AST 28 (15-37) U/L ALT 53 (14-59) U/L Alkaline Phosphatase 61 (46-116) U/L Troponin I < 0.017 (0.00-0.056) ng/mL Total Protein 7.2 (6.4-8.2) g/dl Albumin 3.6 (3.4-5.0) g/dl Globulin 3.6 gm/dL Albumin/Globulin Ratio 1.0 (1-2) Meds: Medications Discontinued Medications Generic Name Dose Route Start Last Admin Trade Name Cipriano PRN Reason Stop Dose Admin Lactated Ringer's 1,000 mls @ 999 mls/hr 05/30/19 08:51 05/30/19 09:00 Ringers, Lactated IV 05/30/19 09:51 999 mls/hr .BOLUS ONE Administration - Re-Assessments/Exams Free Text/Narrative Re-Assessment/Exam: 05/30/19 09:09 At this point I'm not certain what is causing her dizziness will give her a liter fluid see if this helps check some labs and an EKG her Latuda can cause dizziness as well as the Myrbetriq 05/30/19 10:21 Patient is doing better after a liter of fluid. We will discharge at this time. Departure - Departure Time of Disposition: 10:22 Disposition: Home, Self-Care 01 Clinical Impression: Dizziness - Discharge Information Referrals: Jorge Burns PA-C [Primary Care Provider] - Forms: ED Department Discharge Additional Instructions: Return to the emergency room with any questions problems worsening symptoms. Follow-up in the clinic later this week discuss an audiology evaluation and physical therapy evaluation and treatment for dizziness. Drink plenty of fluids. - My Orders Last 24 Hours: My Active Orders 05/30/19 08:52 EKG Documentation Completion [RC] STAT 05/30/19 08:53 Cardiac Monitoring [RC] . DIRECTED 05/30/19 09:15 Chest 2V [CR] Stat - Assessment/Plan Last 24 Hours: My Active Orders 05/30/19 08:52 EKG Documentation Completion [RC] STAT 05/30/19 08:53 Cardiac Monitoring [RC] . DIRECTED 05/30/19 09:15 Chest 2V [CR] Stat
[2019-05-30] MEDS ORDERED: Lactated Ringers 1,000 ML IV ONE (08:51)
--- NOTE | 2019-05-30 10:43 | CR ---
Chest: Two views of the chest were obtained. Comparison: Prior chest x-ray of 11/15/18. Heart size and mediastinum are normal. Lungs are clear. Bony structures are unremarkable. Impression: 1. Nothing acute is seen on two-view chest x-ray. Diagnostic code #1
== END 2019-05-30 10:35 | disposition home or self-care (01) ==
LOC: JD.ED 07:54
DX: R42 Dizziness and giddiness (principal); F41.9 Anxiety disorder, unspecified; F31.9 Bipolar disorder, unspecified; Z79.899 Other long term (current) drug therapy
CPT/HCPCS: 36415; 71046; 80053; 84484; 85025; 93005; 96360; 99284; J7120; 93010; 99283